=== PATIENT | female | born 1960 | race Hispanic/Latino ===

== ENCOUNTER 2017-06-19 09:15 | Emergency (ER) | payer OTHER, BC ==
[2017-06-19 09:22] VITALS: BP 131/79; PULSE 62; RESP 20; TEMP 97; O2SAT 100
[2017-06-19 09:23] VITALS: BMI 23.5
[2017-06-19] MEDS ORDERED: Naproxen 500 MG TAB PO STA (09:55)
[2017-06-19] MEDS ORDERED: Naproxen 500 MG TAB PO ONE (10:02)
--- NOTE | 2017-06-19 10:27 | ED PDOC ---
Lower Extremity Pain/Injury Time Seen by Provider: 06/19/17 09:51 Chief Complaint (Nursing): Lower Extremity Problem/Injury Chief Complaint (Provider): left ankle pain History Per: Patient History/Exam Limitations: no limitations Onset/Duration Of Symptoms: Mins (prior to arrival ) Additional Complaint(s): Maira Flores is a 57 year old female, with no previous medical history, who presents to the ED with complaints of left ankle pain which started secondary to twisting her ankle and falling prior to arrival. Patient reports being unable to ambulate after the injury but denies any numbness or tingling. PMD: none provided Past Medical History Reviewed: Historical Data, Nursing Documentation, Vital Signs Vital Signs: Last Vital Signs Temp 97 F L 06/19/17 09:21 Pulse 62 06/19/17 09:21 Resp 20 06/19/17 09:21 BP 131/79 06/19/17 09:21 Pulse Ox 100 06/19/17 09:21 - Medical History PMH: Hypothyroidism Denies: Chronic Kidney Disease - Surgical History Surgical History: Tonsillectomy - Family History Family History: States: Unknown Family Hx - Home Medications Home Medications: Ambulatory Orders Medication Instructions Recorded Acetaminophen with Codeine 1 tab PO Q6H PRN #10 tab 06/19/17 [Tylenol with Codeine No. 3 300 mg-30 mg] Levothyroxine [Synthroid] 62.5 mcg PO DAILY 06/19/17 Naproxen [Naprosyn] 500 mg PO BID PRN #15 tablet 06/19/17 - Allergies Allergies/Adverse Reactions: Allergies Allergy/AdvReac Type Severity Reaction Status Date / Time No Known Allergies Allergy Verified 06/19/17 09:28 Review of Systems ROS Statement: Except As Marked, All Systems Reviewed And Found Negative Musculoskeletal: Positive for: Leg Pain (left ankle ) Neurological: Negative for: Numbness, Other (tingling ) Physical Exam - Reviewed Nursing Documentation Reviewed: Yes Vital Signs Reviewed: Yes - Physical Exam Appears: Positive for: Well, Non-toxic, No Acute Distress Pulses-Dorsalis Pedis (L): 2+ Extremity: Positive for: Pedal Edema (lateral malleolus ), Capillary Refill (< 2 seconds). Negative for: Normal ROM (decreased secondary to pain ), Deformity Neurologic/Psych: Positive for: Alert, Oriented - ECG O2 Sat by Pulse Oximetry: 100 (RA) Pulse Ox Interpretation: Normal Medical Decision Making Medical Decision Making: Initial Impression: ankle injury Initial Plan: * Naproxen 500 mg PO * x-ray left foot * x-ray left ankle Pt evaluated by Podiatry in ED, follow-up in Podiatry Clinic. Scribe Attestation: Documented by Sydney Whitman acting as a scribe for Sydney Hand MD. Scribe Attestation: All medical record entries made by the Scribe were at my direction and personally dictated by me. I have reviewed the chart and agree that the record accurately reflects my personal performance of the history, physical exam, medical decision making, and the department course for this patient. I have also personally directed, reviewed, and agree with the discharge instructions and disposition. Discharge Instructions: Re-evaluation. Patient feels better. Discussed results and plan with patient who expresses understanding. Counseling was provided regarding the diagnosis and prognosis. All questions answered and there is agreement with the plan to discharge home with instructions. Patient stable for discharge. Return if symptoms persist or worsen. Disposition - Clinical Impression Clinical Impression: Avulsion fracture of lateral malleolus, Metatarsal fracture - Disposition Referrals: Podiatry Clinic [Outside] Disposition: Routine/Home Disposition Time: 11:35 Condition: STABLE Prescriptions: Acetaminophen with Codeine [Tylenol with Codeine No. 3 300 mg-30 mg] 1 tab PO Q6H PRN #10 tab PRN Reason: Pain, Severe (8-10) Naproxen [Naprosyn] 500 mg PO BID PRN #15 tablet PRN Reason: Pain, Moderate (4-7) Instructions: Ankle Fracture (ED), Foot Fracture in Adults (ED) Forms: [facility] (Romanian), [facility] ED School/Work Excuse
--- NOTE | 2017-06-19 11:24 | RAD ---
PROCEDURE: Left Foot Radiographs. HISTORY: Twisting injury COMPARISON: None. FINDINGS: BONES: A nondisplaced fracture through the base of the 5th metatarsal bone is appreciated which is articular. No suspicious lytic or blastic change otherwise evident throughout the left foot. JOINTS: No dislocation. However, there is diffuse digital degenerative joint disease manifest by articular cortical sclerosis and joint space narrowing the digits. SOFT TISSUES: Normal. OTHER FINDINGS: None. IMPRESSION: 1. Nondisplaced, articular fracture through the base of the 5th metatarsal bone affecting the cuboid articulation with the 5th metatarsal bone. No dislocation. 2. 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
--- NOTE | 2017-06-19 11:25 | RAD ---
PROCEDURE: Left Ankle Radiographs. HISTORY: Twisting injury COMPARISON: None FINDINGS: BONES: Possible avulsion fracture of the base of the lateral malleolus with prominent overlying soft tissue edema related. Clinically correlate further. No additional fracture identified. JOINTS: Normal. No osteoarthritis. Ankle mortise maintained. Talar dome intact SOFT TISSUES: As above OTHER FINDINGS: None. IMPRESSION: Likely minimal avulsion fracture nondisplaced at the inferior margins of the lateral malleolus left ankle. Overlying soft tissue edema appears prominent.
--- NOTE | 2017-06-19 12:32 | CP.PCM.CON ---
History of Present Illness - History of Present Illness History of Present Illness: 57 y/o with no PMHx seen at bedside in ED s/p left ankle injury. 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 Patient states that she twisted her ankle and felt an immediate pain after. Patient describes her pain as throbbing pain on the outside of the ankle. Patient denies of any other pedal complains at this time. PMHx: Denies PSHx: Denies Allergies: N.K.D.A SHx: Denies of any smoking, EtOH use, or illicit drug usage Review of Systems - Constitutional Constitutional: As Per HPI Past Patient History - Infectious Disease Hx of Infectious Diseases: None - Past Social History Smoking Status: Never Smoked - CARDIAC Hx Cardiac Disorders: No - PULMONARY Hx Respiratory Disorders: No - NEUROLOGICAL Hx Neurological Disorder: No - HEENT Hx HEENT Problems: No - RENAL Hx Chronic Kidney Disease: No - ENDOCRINE/METABOLIC Hx Hypothyroidism: Yes - HEMATOLOGICAL/ONCOLOGICAL Hx Blood Disorders: No - INTEGUMENTARY Hx Dermatological Problems: No - MUSCULOSKELETAL/RHEUMATOLOGICAL Hx Musculoskeletal Disorders: No - GASTROINTESTINAL Hx Gastrointestinal Disorders: No - GENITOURINARY/GYNECOLOGICAL Hx Genitourinary Disorders: No - PSYCHIATRIC Hx Psychophysiologic Disorder: No Hx Substance Use: No - SURGICAL HISTORY Hx Tonsillectomy: Yes - ANESTHESIA Hx Anesthesia: Yes Hx Anesthesia Reactions: No Meds Home Medications: Home Medication List Medication Instructions Recorded Confirmed Type Acetaminophen with Codeine 1 tab PO Q6H PRN #10 tab 06/19/17 Rx [Tylenol with Codeine No. 3 300 mg-30 mg] Naproxen [Naprosyn] 500 mg PO BID PRN #15 tablet 06/19/17 Rx Allergies/Adverse Reactions: Allergies Allergy/AdvReac Type Severity Reaction Status Date / Time No Known Allergies Allergy Verified 06/19/17 09:28 Physical Exam - Constitutional Appears: Well, Non-toxic, No Acute Distress - Extremities Exam Additional comments: Left Lower Extremity Exam: VASC: DP/PT pulses are palpable 2/4, Cap refill time: < 3 sec to all digits, Temp gradient: Warm to cool from proximal to distal, non-pitting edema noted on the lateral left ankle extending to dorsolataral aspect of the foot DERM: no erythema, no open lesions, no clinical suspicion of active infection NEURO: Protective sensation grossly intact ORTHO: mild pain on palpation of the distal tip of the lateral malleolus, mild pain illicited on palpation of the base of the 5th metatarsal, pain on the lateral ankle as well as the dorsolateral aspect of the left foot on active and passive DF, PF, inversion and eversion, no pain on palpation of the medial aspect of the left ankle at deltoid ligaments, no pain present on palpation of the PT tendon or along the course of the peroneal tendons proximal to the lateral malleolus - Neurological Exam Neurological exam: Alert, Oriented x3 - Psychiatric Exam Psychiatric exam: Normal Affect, Normal Mood Results - Vital Signs Recent Vital Signs: Last Vital Signs Temp 97 F L 06/19/17 09:21 Pulse 62 06/19/17 09:21 Resp 20 06/19/17 09:21 BP 131/79 06/19/17 09:21 Pulse Ox 100 06/19/17 11:36 Assessment & Plan - Assessment and Plan (Free Text) Assessment: 57 y/o female seen at bedside in ED for 1). base of the 5th metatarsal fracture 2). avulsion fracture of the lateral malleolus left lower extremity Plan: Patient seen and evaluated at bedside in ED Patient discussed in details with attending Dr. Baeza X-rays of the foot and ankle evaluated: - Transverse radiolucensy at the level of the distal tip of lateral malleolus on an AP view as well as the lateral view consistent with non- displaced avulsion fracture of the lateral malleolus. Transverse radiolucensy extending to middle of the epiphysis at the base of the 5th metatarsal consistent with a fracture Patient placed in a posterior splint and given crutches to use Patient educated to prevent from any weightbearing to the LLE Patient educated to rest, ice, elevate her LLE Patient educated to take OTC ibuprofen if she has too much pain Patient educated to follow up in the podiatry clinic on weekly basis to track progress Patient demonstrated verbal understanding Thank you for the podiatry consult - Date & Time Date: 06/19/17 Time: 12:00
== END 2017-06-19 12:03 | disposition home or self-care (01) ==
LOC: H.ER 09:15
DX: S92.355A Nondisplaced fracture of fifth metatarsal bone, left foot, initial encounter for closed fracture (principal); X50.1XXA Overexertion from prolonged static or awkward postures, initial encounter; Y93.9 Activity, unspecified